=== PATIENT | male | born 1985 ===

== ENCOUNTER 2016-10-18 15:44 | Emergency (ER) | payer MEDICAID ==
[2016-10-18 16:05] VITALS: BP 123/73; PULSE 69; RESP 20; TEMP 97.4; O2SAT 98
--- NOTE | 2016-10-18 16:46 | C.PDOC ---
History Of Present Illness 31 yr old male presents to the ER stating yesterday while at work he fell backwards, injuring his left shoulder. Patient states he thinks the shoulder poped out but his friend was able to pop it back in. However, today the pain persists. Denies chest pain, SOB, neck pain, back pain, weakness or numbness. Time Seen by Provider: 10/18/16 15:54 Chief Complaint (Nursing): Upper Extremity Problem/Injury History Per: Patient History/Exam Limitations: no limitations Onset/Duration Of Symptoms: Days (1) Past Medical History Reviewed: Historical Data, Nursing Documentation, Vital Signs Vital Signs: Last Vital Signs Temp 97.4 F L 10/18/16 15:52 Pulse 69 10/18/16 15:52 Resp 20 10/18/16 15:52 BP 123/73 10/18/16 15:52 Pulse Ox 98 10/18/16 17:03 - [facility] Procedures APPLICATION OF SPLINT (07/27/06) Family History: States: No Known Family Hx - Social History Hx Alcohol Use: No Hx Substance Use: No - Immunization History Hx Tetanus Toxoid Vaccination: No Hx Influenza Vaccination: No Hx Pneumococcal Vaccination: No Review Of Systems Except As Marked, All Systems Reviewed And Found Negative. Cardiovascular: Negative for: Chest Pain Respiratory: Negative for: Shortness of Breath Musculoskeletal: Positive for: Shoulder Pain (Left shoulder ). Negative for: Neck Pain, Back Pain Neurological: Negative for: Weakness, Numbness Physical Exam - Physical Exam Appears: Non-toxic, No Acute Distress Skin: Warm, Dry, No Rash Head: Atraumatic, Normacephalic Oral Mucosa: Moist Neck: Normal, Normal ROM, Supple Chest: Symmetrical, No Tenderness Cardiovascular: Rhythm Regular, No Murmur Respiratory: Normal Breath Sounds, No Rales, No Rhonchi, No Stridor, No Wheezing Extremity: Tenderness (Left Shoulder - Mild tenderness to the anterior aspect. ) , Capillary Refill (<2), No Deformity, No Swelling, Other (Left Shoulder - only able to abduction to 80 degrees) Pulses: Left Radial: Normal, Right Radial: Normal Neurological/Psych: Oriented x3, Normal Speech, Normal Motor ED Course And Treatment O2 Sat by Pulse Oximetry: 98 (RA) Pulse Ox Interpretation: Normal - Other Rad X-Ray - Left Shoulder X-Ray: Interpreted by Me, Viewed By Me Interpretation: Negative. No fracture or dislocation Medical Decision Making Medical Decision Making: PLAN: * X-Ray - Left Shoulder * Motrin PO Shoulder immobilizer was applied by ED nurse and checked by me. Disposition - Disposition Referrals: Olivia Nichols MD [Staff Provider] - [facility] [Outside] Jim Mendiola III, MD [Staff Provider] - Disposition: HOME/ ROUTINE Disposition Time: 16:45 Condition: GOOD Additional Instructions: KEEP THE IMMOBILIZER ON UNTIL YOU SEE THE ORTHOPEDIST. follow up with the Orthopedist within 1 week. Instructions: Shoulder Dislocation (ED) Forms: [employer] (Pu[place]ican), Work Excuse - Clinical Impression Clinical Impression: Shoulder dislocation - PA / [employer] / Resident Statement MD/DO has reviewed & agrees with the documentation as recorded. - Scribe Statement The provider has reviewed the documentation as recorded by the Scribe Saira Napier All medical record entries made by the Scribe were at my direction and personally dictated by me. I have reviewed the chart and agree that the record accurately reflects my personal performance of the history, physical exam, medical decision making, and the department course for this patient. I have also personally directed, reviewed, and agree with the discharge instructions and disposition.
--- NOTE | 2016-10-18 17:11 | RAD ---
Left shoulder three views History: Injury. Comparison: None available. Findings: Glenohumeral joint space appears grossly preserved. No evidence of acute displaced fracture or dislocation. Impression: Negative acute. If pain persists, consider MRI.
== END 2016-10-18 16:56 | disposition home or self-care (01) ==
LOC: C.ER 15:44
DX: S43.005A Unspecified dislocation of left shoulder joint, initial encounter (principal); W19.XXXA Unspecified fall, initial encounter; Y99.0 Civilian activity done for income or pay